=== PATIENT | female | born 1975 ===

== ENCOUNTER 2017-08-24 07:18 | Inpatient (IN) | payer OTHER ==
[2017-08-24] MEDS ORDERED: OLIVE OIL 118 ML BTL MISC PRN (08:05)
[2017-08-24] MEDS ORDERED: LR 1,000 ML IV PRN (08:05)
[2017-08-24] MEDS ORDERED: TERBUTALINE SULFATE 1 MG/ML VIAL IV PRN (08:05)
[2017-08-24] MEDS ORDERED: MISOPROSTOL 200 MCG TAB PR PRN (08:05)
[2017-08-24] MEDS ORDERED: OXYTOCIN/NORMAL SALINE 1,000 ML IV PRN (08:05)
[2017-08-24] MEDS ORDERED: EPSOM SALT 454 GM TP PRN (08:05)
[2017-08-24 08:50] LABS: PLATELET COUNT 174 10^3/uL (150-400)
[2017-08-24] MEDS ORDERED: OXYTOCIN 10 UNIT/ML VIAL ONE ×2 (09:48→11:28)
[2017-08-24] MEDS ORDERED: LR 500 ML IV PRN (10:03)
--- NOTE | 2017-08-24 10:22 | PDGENHP ---
History and Physical - Chief Complaint Prolonged rupture of membranes - History of Present Illness 40 here with PROM at 0223 on 08/23/17. Pt with care with [facility] starting at 35 weeks. She had prior care since 8 weeks with Ob group with [facility]. She was planning on a homebirth, but is not in labor, so presented to [facility] this morning. In attendance is her partner, Rohit, fresh work wrapper layer Marlena, and director business intelligence student, Aminah. She had regular contractions yesterday and some overnight, but they have become sporadic. She continues to leak clear fluid, no foul odor, and no abd pain when not kylah. She desires a TOLAC. She provided her outside records from prior delivery at [facility] and fresh work wrapper layer care from 35 weeks. Past Ob history: 2 TABs done medically in her 20s 1 SAB 1 term primary LTCS 2/2 intolerance of labor 08/2014, remote from delivery in early labor, done at [facility]. Uncomplicated. Female 3245g, apgars 8 & 9. labs: NIPT neg, male O neg Ab scre neg GBS neg Chl neg Gonorrhea neg RPR NR HBsAg neg HIV NR Per pt - dating is by LMP c/w 8 week ultrasound and date of conception. History Information - Allergies/Home Medication List Allergies/Adverse Reactions: No Known Allergies Allergy (Unverified 08/24/17 08:05) Home Medications: ALPRAZolam [Xanax 0.5 MG (*)] 08/24/17 [Last Taken 1 Month Ago ~07/24/17] Maxalt 08/24/17 [Last Taken 5 Months Ago ~03/26/17] Valtrex 08/24/17 [Last Taken 5 Months Ago ~03/26/17] I have personally reviewed and updated: family history, medical history, social history - Past Medical History Additional medical history: Anxiety - took Xanax sporadically throughout , none for past month - Surgical History Additional surgical history: 09/02 Primary LTCS at [facility] 2/2 intol of labor remote from delivery - Family History Additional family history: noncontributory - Social History Smoking Status: Never smoked Alcohol Use: None Drug Use: None Additional social history: 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 Attended by partner, fresh work wrapper layer and student director business intelligence Review of Systems Review of Systems: ROS: 10pt was reviewed & negative except for what was stated in HPI & below Physical Exam Physical Exam: 36.4 110 16 112/76 FHR 140, Cat 1 reactive, mod variability, + accels toco - irreg contractions Constitutional: no apparent distress Eyes: PERRL Ears, Nose, Mouth, Throat: moist mucous membranes, hearing normal, ears appear normal Cardiovascular: regular rate and rhythym, no murmur, rub, or gallop Respiratory: no respiratory distress, no rales or rhonchi Skin: warm, normal color, no rashes or abrasions, no fluctuance, no induration, No mottled Musculoskeletal: full muscle strength Neurologic: AAOx3 Psychiatric: interacting appropriately, anxious (abd - gravid, fundus nontender when not kylah) Lab Data & Imaging Review 08/24/17 08:30 WBC 13.21 10^3/uL (3.80-9.50) H 08/24/17 08:30 RBC 3.87 10^6/uL (4.18-5.33) L 08/24/17 08:30 Hgb 12.7 g/dL (12.6-16.3) 08/24/17 08:30 Hct 36.0 % (38.0-47.0) L 08/24/17 08:30 MCV 93.0 fL (81.5-99.8) 08/24/17 08:30 MCH 32.8 pg (27.9-34.1) 08/24/17 08:30 MCHC 35.3 g/dL (32.4-36.7) 08/24/17 08:30 RDW 13.4 % (11.5-15.2) 08/24/17 08:30 Plt Count 174 10^3/uL (150-400) 08/24/17 08:30 MPV 10.2 fL (8.7-11.7) 08/24/17 08:30 Neut % (Auto) 78.8 % (39.3-74.2) H 08/24/17 08:30 Lymph % (Auto) 15.4 % (15.0-45.0) 08/24/17 08:30 Carter % (Auto) 4.6 % (4.5-13.0) 08/24/17 08:30 Eos % (Auto) 0.5 % (0.6-7.6) L 08/24/17 08:30 Baso % (Auto) 0.2 % (0.3-1.7) L 08/24/17 08:30 Nucleat RBC Rel Count 0.0 % (0.0-0.2) 08/24/17 08:30 Absolute Neuts (auto) 10.43 10^3/uL (1.70-6.50) H 08/24/17 08:30 Absolute Lymphs (auto) 2.03 10^3/uL (1.00-3.00) 08/24/17 08:30 Absolute Monos (auto) 0.61 10^3/uL (0.30-0.80) 08/24/17 08:30 Absolute Eos (auto) 0.06 10^3/uL (0.03-0.40) 08/24/17 08:30 Absolute Basos (auto) 0.02 10^3/uL (0.02-0.10) 08/24/17 08:30 Absolute Nucleated RBC 0.00 10^3/uL (0-0.01) 08/24/17 08:30 Immature Gran % 0.5 % (0.0-1.1) 08/24/17 08:30 Immature Gran # 0.06 10^3/uL (0.00-0.10) 08/24/17 08:30 Membrane Rupture POSITIVE (NEGATIVE) H 08/24/17 08:15 Patient ABO/Rh O NEGATIVE 08/24/17 08:30 Antibody Screen NEGATIVE 08/24/17 08:30 Assessment & Plan Assessment: 40 yo at 39w3d by LMP and 8 week US, with PROM x 32 hours now. Not in labor. Prior C/S. Desires TOLAC. care elsewhere - records from previous delivery and fresh work wrapper layer care since 35 week available. Will try to obtain records from care she received from Ob group with [facility]? Plan: Admission IV access, labs, standard procedure. consent reviewed and signed. OK for Nitrous and epidural as desired. IV pitocin - extensive discussion about B/R/A effects, including increased risk of uterine rupture in setting of prior section. She understands and agrees to continuous monitoring per protocol. Also discussed low threshhold to proceed with C/S if not following labor curve.
[2017-08-24] MEDS ORDERED: OXYTOCIN/NORMAL SALINE 500 ML IV SCH (10:30)
[2017-08-24] MEDS ORDERED: LIDOCAINE 1% 300 MG/30 ML SDV ONE (11:27)
[2017-08-24] MEDS ORDERED: TERBUTALINE SULFATE 1 MG/ML VIAL ONE (11:28)
[2017-08-24] MEDS ORDERED: AMMONIA AROMATIC 1 EACH AMP IH ONE (11:28)
[2017-08-24] MEDS ORDERED: OLIVE OIL 118 ML BTL ONE (11:28)
[2017-08-24] MEDS ORDERED: MISOPROSTOL 200 MCG TAB ONE (11:29)
[2017-08-24] MEDS ORDERED: ONDANSETRON 4 MG/2 ML VIAL IVP PRN (13:37)
[2017-08-24] MEDS ORDERED: NALOXONE HCL 0.4 MG/ML INJ IVP PRN (13:37)
[2017-08-24] MEDS ORDERED: PHENYLEPHRINE HCL 100 MCG/ML SYR IVP PRN (13:37)
--- NOTE | 2017-08-24 13:39 | OBPROG ---
Labor Progress Note Assessment/Plan: Assessment: 41 at 39w1d with PROM, prior C/S, undergoing IOL with Pitocin, slow progress, desires epidural Plan: Anesthesiologist, Dr. Sinclair to place epidural. Continue with pitocin induction. 08/24/17 13:35 Subjective/Intrapartum Course: 08/24/17 13:38 Pt getting quite uncomfortable and having difficulty coping with pain of contractions. Is exhausted, as has had little sleep. Objective: 08/24/17 08:30 Patient ABO/Rh O NEGATIVE 08/24/17 08:30 - SVE Dilation (cm): 2 Effacement (%): 80 Station: -3 Membranes: SROM Amniotic Fluid Color: Clear - Contraction Pattern Assessment Current Contraction Pattern: Regular - FHR Assessment Twin A FHR (bpm): 135 (reactive) FHR Pattern Variability: Moderate FHR Category: 1 - AP Antepartum Course: 08/24/17 13:42 Pt with care in [place], with Ob group, then Midwifery group starting at 35 weeks, and was planning on a home delivery. Presented to L&D at [facility] approximately 30 hours after PROM, not in labor, as she heard that [facility] was supportive of attempts. Oxytocin Orders Assessment - Pre-Induction/Augmentation Assessment Gestational Age: 39 week(s) and 1 day(s) ICD10 Worksheet Patient Problems: Problems Problem Status Onset PROM with onset of labor more than 24 hours following rupture Acute - ICD10 Problem Qualifiers (1) PROM with onset of labor more than 24 hours following rupture Qualifiers: PROM gestational age: full term Qualified Code(s): O42.12 - Full-term premature rupture of membranes, onset of labor more than 24 hours following rupture
[2017-08-24] MEDS ORDERED: PHENYLEPHRINE HCL 100 MCG/ML SYR ONE (13:44)
[2017-08-24] MEDS ORDERED: BUPIVACAINE 0.25% 30 ML SDV ONE ×3 (13:44→15:48)
[2017-08-24] MEDS ORDERED: fentaNYL 100 MCG/2 ML INJ ONE ×3 (13:45→15:49)
[2017-08-24] MEDS ORDERED: fentaNYL 200 MCG, BUPIVACAINE 0.5% 20 ML in NS 100 ML EP SCH (14:00)
[2017-08-24] MEDS ORDERED: fentaNYL 2MCG/ML/BUP 0.1% RTU 100 ML EP SCH (14:00)
[2017-08-24] MEDS ORDERED: LR 500 ML IV SCH (14:00)
[2017-08-24] MEDS ORDERED: LIDO/EPI 2% **for epidural** 20 ML SDV ONE ×2 (14:19→15:33)
--- NOTE | 2017-08-24 17:31 | OBPROG ---
Labor Progress Note Assessment/Plan: Assessment: 41 at 39w1d with PROM, prior C/S, undergoing IOL with Pitocin, slow progress, desires epidural Plan: Anesthesiologist, Dr. Sinclair to place epidural. Continue with pitocin induction. 08/24/17 13:35 08/24/17 17:28 A: 41 yo at 39w1d with PROM now for 39 hours, , undergoing pitocin induction, has now received 3 epidural placements, as first 2 unsuccessful. P: Current epidural seems to be effective. Will allow pt to rest but continue with pitocin induction. Subjective/Intrapartum Course: 08/24/17 13:38 Pt getting quite uncomfortable and having difficulty coping with pain of contractions. Is exhausted, as has had little sleep. 08/24/17 17:30 Pt is having some nausea and dizziness after 3rd epidural placement. Contraction pain has resolved though. Objective: 08/24/17 08:30 Patient ABO/Rh O NEGATIVE 08/24/17 08:30 VS from 1700 36.6 90 16 79/47 repeat 132/76 gen - resting comfortably in bed. SVE not repeated yet as pt just comfortable with epidural. - SVE Membranes: SROM Amniotic Fluid Color: Clear - Contraction Pattern Assessment Current Contraction Pattern: Regular - AP Antepartum Course: 08/24/17 13:42 Pt with care in [place], with Ob group, then Midwifery group starting at 35 weeks, and was planning on a home delivery. Presented to L&D at [facility] approximately 30 hours after PROM, not in labor, as she heard that [facility] was supportive of attempts. Oxytocin Orders Assessment - Pre-Induction/Augmentation Assessment Gestational Age: 39 week(s) and 1 day(s) ICD10 Worksheet Patient Problems: Problems Problem Status Onset PROM with onset of labor more than 24 hours following rupture Acute - ICD10 Problem Qualifiers (1) PROM with onset of labor more than 24 hours following rupture Qualifiers: PROM gestational age: full term Qualified Code(s): O42.12 - Full-term premature rupture of membranes, onset of labor more than 24 hours following rupture
--- NOTE | 2017-08-24 18:45 | PREANESOB ---
Obstetric Pre-Anesthesia Info - General Info Proposed Procedure: labor : 5 Para: 1 ALESSANDRO: 08/30/17 Gestational Age: 39 week(s) and 1 day(s) - Info Status: Full Term Monitors: External FHR Pattern: Reassuring - Labor Status Cervical Dilation per last OB SVE: 2 Station per last OB SVE: -3 Amniotic Fluid Color: Clear Pitocin: In Use Indications for Labor Analgesia: Augmentation of Labor Labor Epidural: Proposed (tolac) Anesthesia ROS: hx of anxiety, otherwise neg Allergies/Adverse Reactions: Allergy/AdvReac Type Severity Reaction Status Date / Time No Known Allergies Allergy Unverified 08/24/17 08:05 Home Medications: Medication Instructions Recorded ALPRAZolam [Xanax 0.5 MG (*)] 08/24/17 Maxalt 08/24/17 Valtrex 08/24/17 Visit Medications: Generic Name Dose Route Start Last Admin Trade Name Freq PRN Reason Stop Dose Admin Diphenhydramine HCl 25 - 50 mg 08/24/17 13:37 Benadryl Injection IVP 02/20/18 13:36 Q6HRS PRN Itching Ephedrine Sulfate 10 mg 08/24/17 13:37 Ephedrine Sulfate IV 02/20/18 13:36 .Q2M PRN Hypotension Lactated Ringer's 1,000 mls @ 0 mls/hr 08/24/17 08:05 08/24/17 10:24 Lr IV 08/25/17 08:04 1,000 mls PRN PRN Administration SEE PROTOCOL CONDITIONS Protocol Per Protocol Oxytocin/Sodium Chloride 1,000 mls @ 0 mls/hr 08/24/17 08:05 Pitocin 20 Units/Ns (Premix) IV PRN PRN Post Bleeding Titrate Lactated Ringer's 500 mls @ 500 mls/hr 08/24/17 10:03 Lr IV 08/25/17 10:04 PRN PRN Maternal Hypotension Oxytocin/Sodium Chloride 500 mls @ 0 mls/hr 08/24/17 10:30 Pitocin 30 Units/Ns (Premix) IV 02/20/18 10:29 CONT ANALY Protocol Per Protocol Lactated Ringer's 500 mls @ 0 mls/hr 08/24/17 14:00 Lr IV 02/20/18 13:59 CONT ANALY As Directed Fentanyl 200 mcg/ Bupivacaine 100 mls @ 0 mls/hr 08/24/17 14:00 HCl 20 ml/ Sodium Chloride EP 09/03/17 13:59 CONT [facility] Protocol As Directed Ibuprofen 600 mg 08/24/17 08:05 Motrin PO 02/20/18 08:04 Q6HRS PRN post , inflammation Magnesium Sulfate 454 gm 08/24/17 08:05 Epsom Salt TP 02/20/18 08:04 Q1H PRN perineal discomfort Misoprostol 800 - 1,000 mcg 08/24/17 08:05 Cytotec VT ONCE PRN Vaginal Atony/Bleeding Naloxone HCl 0.4 mg 08/24/17 13:37 Narcan IVP 02/20/18 13:36 PRN PRN Respiratory depression Priddy Oil 118 ml 08/24/17 08:05 Sweet Oil MISC 02/20/18 08:04 ONCE PRN perineal massage Ondansetron HCl 4 mg 08/24/17 13:37 08/24/17 17:20 Zofran IVP 08/25/17 13:36 4 mg Q4HRS PRN Administration Nausea/Vomiting, Can't Take PO Phenylephrine HCl 100 mcg 08/24/17 13:37 08/24/17 16:51 Neosynephrine IVP 02/20/18 13:36 100 mcg .Q2M PRN Administration Hypotension Terbutaline Sulfate 0.25 mg 08/24/17 08:05 Brethine IV 02/20/18 08:04 ONCE PRN Tachysystole Discontinued Medications Generic Name Dose Route Start Last Admin Trade Name Freq PRN Reason Stop Dose Admin Ammonia (Aromatic Spirit) Confirm 08/24/17 11:28 Ammonia Aromatic Administered 08/24/17 11:29 Dose 1 each IH .STK-MED ONE Bupivacaine HCl Confirm 08/24/17 13:44 Sensorcaine 0.25% Sdv Administered 08/24/17 13:45 Dose 30 ml .ROUTE .STK-MED ONE Bupivacaine HCl Confirm 08/24/17 14:32 Sensorcaine 0.25% Sdv Administered 08/24/17 14:33 Dose 30 ml .ROUTE .STK-MED ONE Bupivacaine HCl Confirm 08/24/17 15:48 Sensorcaine 0.25% Sdv Administered 08/24/17 15:49 Dose 30 ml .ROUTE .STK-MED ONE Fentanyl Confirm 08/24/17 13:45 Sublimaze Administered 08/24/17 13:46 Dose 100 mcg .ROUTE .STK-MED ONE Fentanyl Confirm 08/24/17 14:32 Sublimaze Administered 08/24/17 14:33 Dose 100 mcg .ROUTE .STK-MED ONE Fentanyl Confirm 08/24/17 15:49 Sublimaze Administered 08/24/17 15:50 Dose 100 mcg .ROUTE .STK-MED ONE Fentanyl/Bupivacaine HCl 100 mls @ 0 mls/hr 08/24/17 14:00 Fentanyl/Bupivacaine/Ns 2 Mcg/Ml 0.1% (Premix EP 09/03/17 13:59 CONT ANALY Protocol As Directed Lidocaine HCl Confirm 08/24/17 11:27 Lidocaine Hcl 1% Administered 08/24/17 11:28 Dose 300 mg .ROUTE .STK-MED ONE Lidocaine/Epinephrine Confirm 08/24/17 14:19 Xylocaine 2%-Epi 1:200,000 Administered 08/24/17 14:20 Dose 20 ml .ROUTE .STK-MED ONE Lidocaine/Epinephrine Confirm 08/24/17 15:33 Xylocaine 2%-Epi 1:200,000 Administered 08/24/17 15:34 Dose 20 ml .ROUTE .STK-MED ONE Misoprostol Confirm 08/24/17 11:29 Cytotec Administered 08/24/17 11:30 Dose 1,000 mcg .ROUTE .STK-MED ONE Priddy Oil Confirm 08/24/17 11:28 Sweet Oil Administered 08/24/17 11:29 Dose 118 ml .ROUTE .STK-MED ONE Oxytocin Confirm 08/24/17 09:48 Pitocin Administered 08/24/17 09:49 Dose 30 unit .ROUTE .STK-MED ONE Oxytocin Confirm 08/24/17 11:28 Pitocin Administered 08/24/17 11:29 Dose 40 unit .ROUTE .STK-MED ONE Phenylephrine HCl Confirm 08/24/17 13:44 Neosynephrine Administered 08/24/17 13:45 Dose 1,000 mcg .ROUTE .STK-MED ONE Terbutaline Sulfate Confirm 08/24/17 11:28 Brethine Administered 08/24/17 11:29 Dose 1 mg .ROUTE .STK-MED ONE - Anesthesia History Response to Local Anesthetics: Normal Anesthesia & Operative History: No Prior Problems Family Anesthesia History: Negative - Social History Substance Use/Abuse: Denies - Vital Signs Height/Weight (Nursing): Height 167.64 cm Weight 88.904 kg - Focused Exam Neck exam: increased neck circumference Mallampati Score: Class 2 Mouth exam: normal dental/mouth exam Pulmonary: no respiratory distress Cardiovascular: regular rate and rhythym Labs: 08/24/17 08:30 Patient ABO/Rh O NEGATIVE 08/24/17 08:30 - Plan Consent Signed and on Chart: Yes Patient/Guardian Understands and Agrees to Plan: Yes Urgent/Emergent Case: Nate thompson completed preop but documented later for safe timely pt care
--- NOTE | 2017-08-24 20:45 | OBPROG ---
Labor Progress Note Assessment/Plan: Assessment: 41 at 39w1d with PROM, prior C/S, undergoing IOL with Pitocin, slow progress, desires epidural Plan: Anesthesiologist, Dr. Sinclair to place epidural. Continue with pitocin induction. 08/24/17 13:35 08/24/17 17:28 A: 41 yo at 39w1d with PROM now for 39 hours, , undergoing pitocin induction, has now received 3 epidural placements, as first 2 unsuccessful. P: Current epidural seems to be effective. Will allow pt to rest but continue with pitocin induction. 08/24/17 20:39 A: 41 yo at 39w1d with PROM now for 39 hours, , undergoing pitocin induction, making some progress P: Continue with pitocin, allow rest with epidural Subjective/Intrapartum Course: 08/24/17 13:38 Pt getting quite uncomfortable and having difficulty coping with pain of contractions. Is exhausted, as has had little sleep. 08/24/17 17:30 Pt is having some nausea and dizziness after 3rd epidural placement. Contraction pain has resolved though. 08/24/17 19:00 Pt comfortable now, has been able to get some rest. Objective: 08/24/17 08:30 Patient ABO/Rh O NEGATIVE 08/24/17 08:30 37.1 vss - SVE Dilation (cm): 5 Effacement (%): 80 Station: -2 Membranes: SROM Amniotic Fluid Color: Clear - Contraction Pattern Assessment Current Contraction Pattern: Regular, Irregular - AP Antepartum Course: 08/24/17 13:42 Pt with care in [place], with Ob group, then Midwifery group starting at 35 weeks, and was planning on a home delivery. Presented to L&D at [facility] approximately 30 hours after PROM, not in labor, as she heard that [facility] was supportive of attempts. Oxytocin Orders Assessment - Pre-Induction/Augmentation Assessment Gestational Age: 39 week(s) and 1 day(s) ICD10 Worksheet Patient Problems: Problems Problem Status Onset PROM with onset of labor more than 24 hours following rupture Acute - ICD10 Problem Qualifiers (1) PROM with onset of labor more than 24 hours following rupture Qualifiers: PROM gestational age: full term Qualified Code(s): O42.12 - Full-term premature rupture of membranes, onset of labor more than 24 hours following rupture
--- NOTE | 2017-08-24 21:30 | OBPROG ---
Labor Progress Note Assessment/Plan: Assessment: 41 at 39w1d with PROM, prior C/S, undergoing IOL with Pitocin, slow progress, desires epidural Plan: Anesthesiologist, Dr. Sinclair to place epidural. Continue with pitocin induction. 08/24/17 13:35 08/24/17 17:28 A: 41 yo at 39w1d with PROM now for 39 hours, , undergoing pitocin induction, has now received 3 epidural placements, as first 2 unsuccessful. P: Current epidural seems to be effective. Will allow pt to rest but continue with pitocin induction. 08/24/17 20:39 A: 41 yo at 39w1d with PROM now for 39 hours, , undergoing pitocin induction, making some progress P: Continue with pitocin, allow rest with epidural 08/24/17 21:27 A: 41 yo at 39w1d with PROM x 42 hours, , has made great progress with pitocin induction P: Anticipate pushing in next hour as only a sliver of cervix left on pt's left side. Subjective/Intrapartum Course: 08/24/17 13:38 Pt getting quite uncomfortable and having difficulty coping with pain of contractions. Is exhausted, as has had little sleep. 08/24/17 17:30 Pt is having some nausea and dizziness after 3rd epidural placement. Contraction pain has resolved though. 08/24/17 19:00 Pt comfortable now, has been able to get some rest. Objective: 08/24/17 08:30 Patient ABO/Rh O NEGATIVE 08/24/17 08:30 gen - pleasant, NAD, though appears a bit uncomfortable with contractions SVE - 9.5 / 100 / -1 - SVE Dilation (cm): 9 Effacement (%): 100 Station: -1 Membranes: SROM Amniotic Fluid Color: Clear - Contraction Pattern Assessment Current Contraction Pattern: Regular, Irregular - AP Antepartum Course: 08/24/17 13:42 Pt with care in [place], with Ob group, then Midwifery group starting at 35 weeks, and was planning on a home delivery. Presented to L&D at [facility] approximately 30 hours after PROM, not in labor, as she heard that [facility] was supportive of attempts. Oxytocin Orders Assessment - Pre-Induction/Augmentation Assessment Gestational Age: 39 week(s) and 1 day(s) ICD10 Worksheet Patient Problems: Problems Problem Status Onset PROM with onset of labor more than 24 hours following rupture Acute - ICD10 Problem Qualifiers (1) PROM with onset of labor more than 24 hours following rupture Qualifiers: PROM gestational age: full term Qualified Code(s): O42.12 - Full-term premature rupture of membranes, onset of labor more than 24 hours following rupture
--- NOTE | 2017-08-25 01:05 | OBDEL ---
Info Type: Vaginal Presentation at Delivery: [facility] Analgesia/Anesthesia Type: Epidural GBS+: No Intrapartum Medications: Generic Name Dose Route Start Last Admin Trade Name Freq PRN Reason Stop Dose Admin Lactated Ringer's 1,000 mls @ 0 mls/hr 08/24/17 08:05 08/24/17 10:24 Lr IV 08/25/17 08:04 1,000 mls PRN PRN Administration SEE PROTOCOL CONDITIONS Protocol Per Protocol Ondansetron HCl 4 mg 08/24/17 13:37 08/24/17 17:20 Zofran IVP 08/25/17 13:36 4 mg Q4HRS PRN Administration Nausea/Vomiting, Can't Take PO Phenylephrine HCl 100 mcg 08/24/17 13:37 08/24/17 16:51 Neosynephrine IVP 02/20/18 13:36 100 mcg .Q2M PRN Administration Hypotension - Hospital Course Intrapartum: 08/24/17 13:38 Pt getting quite uncomfortable and having difficulty coping with pain of contractions. Is exhausted, as has had little sleep. 08/24/17 17:30 Pt is having some nausea and dizziness after 3rd epidural placement. Contraction pain has resolved though. 08/24/17 19:00 Pt comfortable now, has been able to get some rest. Indications for Delivery: SROM (PROM occurred at 0230 on 08/23/17) Vaginal Delivery - Delivery Provider Delivery Physician/CNM: Marlena Allen - Labor and Delivery Onset of Contractions Date: 08/24/17 Onset of Contractions Time: 09:28 Onset of Contractions Type: Induced Rupture of Membranes Date: 08/23/17 Rupture of Membranes Time: 02:30 Rupture of Membranes Type: Premature Amniotic Fluid Color: Clear Dilation Complete Date: 08/24/17 Dilation Complete Time: 22:50 Placenta Delivery Date: 08/25/17 Placenta Delivery Time: 00:33 Total Hours of Labor: 15 Laceration: 2nd Degree Repair: 3-0, Vicryl Vaginal Sponge Count Correct: Yes Vaginal Needle Count Correct: Yes Vaginal Sweep Performed: Yes EBL: 400 Delivery Events: Nuchal Cord Delivery Comment: Successful , pushed 1 hour - Medications Labor Augmentation/Induction Methods Used: Pitocin (PROM) Labor Augmentation/Induction Indication: Contraction Strength Inadequate, Inadequate Ctx Strength [place] Data ALESSANDRO: 08/30/17 Gestational Age: 39 week(s) and 2 day(s) ICD10 Worksheet Patient Problems: Problems Problem Status Onset PROM with onset of labor more than 24 hours following rupture Acute - ICD10 Problem Qualifiers (1) PROM with onset of labor more than 24 hours following rupture Qualifiers: PROM gestational age: full term Qualified Code(s): O42.12 - Full-term premature rupture of membranes, onset of labor more than 24 hours following rupture
[2017-08-25] MEDS ORDERED: HYDROCODONE/APAP 5/325 TAB PO PRN (01:13)
[2017-08-25] MEDS ORDERED: SIMETHICONE 80 MG TAB CHEW PO PRN (01:13)
[2017-08-25] MEDS ORDERED: HYDROCORTISONE 0.5% CREAM TP PRN (01:13)
[2017-08-25] MEDS ORDERED: ACETAMINOPHEN 325 MG TAB PO PRN (01:13)
[2017-08-25] MEDS: IBUPROFEN 600 MG TAB PO PRN ×4 (01:15→18:42)
[2017-08-25] MEDS ORDERED: OXYTOCIN/NORMAL SALINE 1,000 ML IV SCH (01:30)
--- NOTE | 2017-08-25 05:14 | PDMN ---
Medical Necessity Medical necessity: C/M review: Patient meets INPT criteria under [facility] [id number] Vaginal delivery; viable male .
--- NOTE | 2017-08-25 10:41 | OBPP ---
Progress Note Assessment/Plan: Assessment: 41 y/o PPD #0 s/p successful doing well. Plan: support, routine PPC. 08/25/17 10:39 Subjective/ Course: 08/25/17 10:37 Pt is exhausted and trying to rest this am. She has soreness and tenderness in her lower back, but no neurological symptoms or other problems. She reports cramping controlled with Ibuprofen. She is ambulating and voiding without difficulty and has min lochia. She is working on breast feeding, baby is struggling with low glucose values. Objective: 08/24/17 08:30 Patient ABO/Rh O NEGATIVE 08/25/17 00:23 Temp Pulse Resp BP Pulse Ox 36.8 C 88 14 104/65 94 08/25/17 03:15 08/25/17 03:15 08/25/17 03:15 08/25/17 03:15 08/25/17 03:15 Uterine Position/Fundal Height: Umbilicus -2 Uterine Tone: Firm Physical Exam - Physical Exam General Appearance: WD/WN, alert, no apparent distress Neck: non-tender, full range of motion, supple Respiratory: chest non-tender, lungs clear, normal breath sounds Cardiac/Chest: regular rate, rhythm Abdomen: normal bowel sounds Extremities: swelling (no), José Miguel's sign (neg)
--- NOTE | 2017-08-25 10:45 | POSTANESTH ---
Post Anesthetic Evaluation Cardiovascular Status: Normal, Stable Respiratory Status: Normal, Stable Level of Consciousness/Mental Status: Can Participate in Eval Pain Control: Adequate, Prn Tx Ordered Nausea/Vomiting Control: Adequate, Prn Tx Ordered Complications Possibly Related to Anesthesia: None Noted
[2017-08-25] MEDS: OXYCODONE/APAP 5/325 TAB PO PRN (21:57)
[2017-08-26] MEDS: IBUPROFEN 600 MG TAB PO PRN ×4 (00:18→19:31)
[2017-08-26] MEDS: OXYCODONE/APAP 5/325 TAB PO PRN ×3 (02:46→20:34)
--- NOTE | 2017-08-26 11:23 | OBPP ---
Progress Note Assessment/Plan: Assessment: 41 at 39w1d with PROM, prior C/S, undergoing IOL with Pitocin, slow progress, desires epidural Plan: Anesthesiologist, Dr. Sinclair to place epidural. Continue with pitocin induction. 08/24/17 13:35 08/24/17 17:28 A: 41 yo at 39w1d with PROM now for 39 hours, , undergoing pitocin induction, has now received 3 epidural placements, as first 2 unsuccessful. P: Current epidural seems to be effective. Will allow pt to rest but continue with pitocin induction. 08/24/17 20:39 A: 41 yo at 39w1d with PROM now for 39 hours, , undergoing pitocin induction, making some progress P: Continue with pitocin, allow rest with epidural 08/24/17 21:27 A: 41 yo at 39w1d with PROM x 42 hours, , has made great progress with pitocin induction P: Anticipate pushing in next hour as only a sliver of cervix left on pt's left side. 08/26/17 11:23 A: PPD#1 s/p successful , doing well. P: Anticipate dc home/boarding tomorrow. Subjective/ Course: 08/25/17 10:37 Pt is exhausted and trying to rest this am. She has soreness and tenderness in her lower back, but no neurological symptoms or other problems. She reports cramping controlled with Ibuprofen. She is ambulating and voiding without difficulty and has min lochia. She is working on breast feeding, baby is struggling with low glucose values. 08/26/17 11:21 Doing well. Ambulating and voiding without difficulty. Baby is in NICU - dealing with blood sugar issues, but going well, working on . Objective: 08/24/17 08:30 Patient ABO/Rh O NEGATIVE 08/25/17 00:23 Temp Pulse Resp BP Pulse Ox 36.2 C 92 16 116/76 95 08/26/17 08:00 08/26/17 08:00 08/26/17 08:00 08/26/17 08:00 08/25/17 20:00 gen - pleasant, NAD CV - RRR chest - CTAB ext - calves NT, tr edema Uterine Position/Fundal Height: Umbilicus -3 Uterine Tone: Firm
[2017-08-26] MEDS: DOCUSATE SODIUM 100 MG CAP PO PRN ×2 (12:32→19:30)
[2017-08-27] MEDS: IBUPROFEN 600 MG TAB PO PRN ×2 (02:18→07:49)
[2017-08-27] MEDS: DOCUSATE SODIUM 100 MG CAP PO PRN (07:50)
--- NOTE | 2017-08-27 08:26 | OBPP ---
Progress Note Assessment/Plan: Assessment: 41 at 39w1d with PROM, prior C/S, undergoing IOL with Pitocin, slow progress, desires epidural Plan: Anesthesiologist, Dr. Sinclair to place epidural. Continue with pitocin induction. 08/24/17 13:35 08/24/17 17:28 A: 41 yo at 39w1d with PROM now for 39 hours, , undergoing pitocin induction, has now received 3 epidural placements, as first 2 unsuccessful. P: Current epidural seems to be effective. Will allow pt to rest but continue with pitocin induction. 08/24/17 20:39 A: 41 yo at 39w1d with PROM now for 39 hours, , undergoing pitocin induction, making some progress P: Continue with pitocin, allow rest with epidural 08/24/17 21:27 A: 41 yo at 39w1d with PROM x 42 hours, , has made great progress with pitocin induction P: Anticipate pushing in next hour as only a sliver of cervix left on pt's left side. 08/26/17 11:23 A: PPD#1 s/p successful , doing well. P: Anticipate dc home/boarding tomorrow. 08/27/17 08:23 A/P: PPD #2 s/p successful , doing well, will dc home - see dc summary. Subjective/ Course: 08/25/17 10:37 Pt is exhausted and trying to rest this am. She has soreness and tenderness in her lower back, but no neurological symptoms or other problems. She reports cramping controlled with Ibuprofen. She is ambulating and voiding without difficulty and has min lochia. She is working on breast feeding, baby is struggling with low glucose values. 08/26/17 11:21 Doing well. Ambulating and voiding without difficulty. Baby is in NICU - dealing with blood sugar issues, but going well, working on . 08/27/17 08:24 Doing well. Ambulating, voiding and had BM without difficulty. Baby is doing well and will be discharged to home today. going well. Objective: 08/24/17 08:30 Patient ABO/Rh O NEGATIVE 08/25/17 00:23 Temp Pulse Resp BP Pulse Ox 36.2 C 85 16 119/82 H 96 08/26/17 20:30 08/26/17 20:30 08/26/17 20:30 08/26/17 20:30 08/26/17 20:30 gen - pleasant, NAD CV -RRR chest - CTAB abd - fundus firm u-2 ext - calves NT, trace edema Uterine Position/Fundal Height: Umbilicus -2 Uterine Tone: Firm
--- NOTE | 2017-08-27 08:31 | OBGCSDC ---
General Delivery Information - General Info : 5 Para: 2 Abortions: 3 Type: Vaginal L&D Analgesia/Anesthesia Type: Epidural Admission Date: 08/24/17 Labs: Patient ABO/Rh O NEGATIVE 08/25/17 00:23 Hct 36.0 % (38.0-47.0) L 08/24/17 08:30 - Hospital Course Antepartum: 08/24/17 13:42 Pt with care in [place], with Ob group, then Midwifery group starting at 35 weeks, and was planning on a home delivery. Presented to L&D at [facility] approximately 30 hours after PROM, not in labor, as she heard that [facility] was supportive of attempts. Intrapartum: 08/24/17 13:38 Pt getting quite uncomfortable and having difficulty coping with pain of contractions. Is exhausted, as has had little sleep. 08/24/17 17:30 Pt is having some nausea and dizziness after 3rd epidural placement. Contraction pain has resolved though. 08/24/17 19:00 Pt comfortable now, has been able to get some rest. : 08/25/17 10:37 Pt is exhausted and trying to rest this am. She has soreness and tenderness in her lower back, but no neurological symptoms or other problems. She reports cramping controlled with Ibuprofen. She is ambulating and voiding without difficulty and has min lochia. She is working on breast feeding, baby is struggling with low glucose values. 08/26/17 11:21 Doing well. Ambulating and voiding without difficulty. Baby is in NICU - dealing with blood sugar issues, but going well, working on . 08/27/17 08:24 Doing well. Ambulating, voiding and had BM without difficulty. Baby is doing well and will be discharged to home today. going well. Vaginal - Delivery Provider Delivery Physician/CNM: Marlena Allen (successful ) - Diagnosis Labor: Induced Rupture of Membranes Type: Premature Amniotic Fluid Color: Clear Laceration: 2nd Degree Repair: 3-0, Vicryl Delivery Events: Nuchal Cord - Delivery EBL: [address] ALESSANDRO: 08/30/17 Gestational Age: 39 week(s) and 4 day(s) Twin A Delivery Date: 08/25/17 Delivery Time: 00:23 Sex of : Male Weight (gm): 4050 g Score (1 Min): 8 Score (5 Min): 9 Discharge Information - Discharge Information Condition: Good Instruction/Follow Up: See Instruction Sheet (6 week check recommended. May do [facility] Nurse Marlena or come to see Dr. Marlena Allen at [facility]), Six Weeks
[2017-08-27 09:51] VITALS: BP 119/79
== END 2017-08-27 10:00 | disposition home or self-care (01) | DRG 775 ==
LOC: FLD 07:18 → FOB 08-25 03:10
PROVIDERS: ADMIT Hospitalist; ATTEND Hospitalist
DX: O42.12 Full-term premature rupture of membranes, onset of labor more than 24 hours following rupture (principal); O70.1 Second degree perineal laceration during delivery; O69.81X0 Labor and delivery complicated by cord around neck, without compression, not applicable or unspecified; O34.211 Maternal care for low transverse scar from previous cesarean delivery; O99.343 Other mental disorders complicating pregnancy, third trimester; Z3A.39 39 weeks gestation of pregnancy; Z37.0 Single live birth; F41.9 Anxiety disorder, unspecified
CPT/HCPCS: J2370; J2405; J2590; J3010; J3105